=== PATIENT | male | born 1940 | race Caucasian/White ===

== ENCOUNTER → 2016-11-05 | Outpatient (CLI) | payer MEDICARE ==
[2016-11-05 08:15] LABS: Blood Urea Nitrogen 21 mg/dL (9-20); Non-African American GFR(MDRD) >60 (>60 ml/min/1.73 sqM)
--- NOTE | 2016-11-05 10:02 | CT ---
EXAMINATION TYPE: CT chest w con DATE OF EXAM: 11/05/2016 COMPARISON: CT chest October 22, 2015 HISTORY: Thoracic aortic aneurysm without rupture CT DLP: 671 mGycm. Automated Exposure Control for Dose Reduction was Utilized. TECHNIQUE: CT scan of the thorax is performed following with IV Contrast, patient injected with 100 ml mL of Omnipaque 300. FINDINGS: LUNGS: There is biapical scarring extending posteriorly on the right redemonstrated. There is depende nt atelectasis in both lower lobes. No concerning parenchymal nodule or mass is present bilaterally. No pleural effusion or pneumothorax is seen. Tracheobronchial tree is patent. MEDIASTINUM: There are no greater than 1 cm hilar or mediastinal lymph nodes. Heart size is stable an d upper limits of normal. There is mild biatrial dilatation. There is tiny pericardial effusion sligh tly more prominent. Coronary artery calcification is redemonstrated which is noted marker for coronar y artery disease. Ascending aorta measures 4.2 cm in diameter on axial image 29 not significantly ritchie nged from prior study. There is mild mixed plaque in the descending aorta noted. OTHER: There is 1 cm diverticulum medial to second portion of duodenum on coronal image 32 redemonstr ated. There is prominent multilevel anterior and lateral spurring in the visualized spine. IMPRESSION: 1. Stable 4.2 cm aneurysm of the ascending aorta
== END | disposition home or self-care (01) ==
LOC: RADCTMAIN 07:35
PROVIDERS: ATTEND Internal Medicine Cardiovascular Disease
DX: I71.2 Thoracic aortic aneurysm, without rupture (principal); I10 Essential (primary) hypertension
CPT/HCPCS: 82565; 84520; 71260; 36415; Q9967

== ENCOUNTER → 2018-08-23 | Outpatient (CLI) | payer MEDICARE ==
--- NOTE | 2018-08-24 12:46 | USB ---
Reason for exam: clinical finding. Indicated problem(s): palpable abnormality in the left breast. Physical Findings: Nurse Summary: left breast more prominent tissue than right breast (nurse ts). US Breast LT Left complete breast ultrasound includes all four quadrants, the retroareolar region and axilla. Finding demonstrates a 1.1 x 0.7 x 0.7cm hypoechoic, vascular lesion at the posterior nipple. These results were verbally communicated with the patient and result sheet given to the patient on 08/23/18. ASSESSMENT: Incomplete: need additional imaging evaluation, BI-RAD 0 RECOMMENDATION: Special view mammogram of the left breast.
--- NOTE | 2018-08-24 12:50 | MM ---
Reason for exam: clinical finding. MG 3D Diag Mammo W/Cad LT CC and MLO view(s) were taken of the left breast. There is no discrete abnormality. These results were verbally communicated with the patient and result sheet given to the patient on 08/23/18. ASSESSMENT: Suspicious, BI-RAD 4 RECOMMENDATION: Ultrasound core biopsy of the left breast. Patient is unsure if he would like a biopsy done at this time or who he would like to see for surgical consult. Patient states that he will notify Dr. Marshall once decision is made. Nurse left message with Dr. Marshall's voice mail regarding patient's choice at this time. PRELIMINARY REPORT CALLED AND FAXED TO DR. MARSHALL ON 08/24/18.
== END | disposition home or self-care (01) ==
LOC: RADUSWWP 06:51
PROVIDERS: ATTEND Family Medicine
DX: N63.20 Unspecified lump in the left breast, unspecified quadrant (principal); R92.8 Other abnormal and inconclusive findings on diagnostic imaging of breast
CPT/HCPCS: 77065; 76641; G0279; 77061

== ENCOUNTER → 2018-09-17 | Day surgery (SDC) | payer MEDICARE ==
[2018-09-17 11:26] VITALS: RESP 12; TEMP 97.4
[2018-09-17 12:54] VITALS: BP 120/75; PULSE 65
--- NOTE | 2018-09-17 13:34 | USB ---
EXAMINATION TYPE: US biopsy breast VAD LT DATE OF EXAM: 09/17/2018 CLINICAL HISTORY: N63.20 lump in left breast. TECHNIQUE: Ultrasound guided core biopsy of breast. COMPARISON: NONE FINDINGS: The procedure of ultrasound guided core biopsy was explained to the patient. Benefits, alternatives, and risks were discussed. An informed consent was then obtained. The patient was placed in supine positioning for imaging and for the procedure. The overlying skin was prepped and draped in usual sterile fashion. Lidocaine buffered with bicarbonate was used as anesthetic into the skin and subcutaneous tissue up to area of concern in the left breast. A leonel was made with surgical scalpel. Under ultrasound guidance, a 12-gauge vacuum assisted biopsy gun device was used to obtain 3 core samples. Following this, a biopsy clip was left in lesion. The patient tolerated the procedure well without any immediate complication. The patient was kept in the radiology department for short stay after the procedure and then discharged home in stable condition. IMPRESSION: Successful, uncomplicated ultrasound guided core biopsy of area of concern in the left breast, full pathology results to follow. Pathology Results: Benign LEFT BREAST, ULTRASOUND GUIDED CORE BIOPSY: Gynecomastia. Recommendation Further clinical management of benign gynecomastia. MTDD
== END ==
LOC: RADUSWWP 11:06
PROVIDERS: ATTEND Family Medicine
DX: N63.20 Unspecified lump in the left breast, unspecified quadrant (principal); N62 Hypertrophy of breast
CPT/HCPCS: 88305; 19083; A4648; J2001

== ENCOUNTER → 2019-07-30 | Outpatient (CLI) | payer MEDICARE ==
--- NOTE | 2019-08-01 12:18 | PE ---
Nuclear medicine PET/CT HISTORY: Squamous cell of head, skin, initial Patient received 11.5 mCi F-18 FDG intravenously and delayed whole-body scanning was performed. No comparisons Head and neck: There is no hyper metabolic uptake identified. No evident cervical, supraclavicular ad enopathy. CHEST: There is no evident lung mass, no mediastinal, axillary, hilar adenopathy. Coronary artery mitchell cifications are present. Aorta shows an ascending aorta measurement of 5 cm. No hypermetabolic uptake . ABDOMEN: Duodenal diverticulum is noted. Diverticular change in the sigmoid colon. No hypermetabolic uptake. Aorta is dense. Osseous structures: There is artifact due to patient's hip prostheses. No suspicious lytic or blastic lesion. No hypermetabolic uptake. Muscular uptake is likely physiologic. Lower extremities show no hypermetabolic uptake. impression: No suspicious findings.
== END | disposition home or self-care (01) ==
LOC: RADPETMAIN 09:41
PROVIDERS: ATTEND Internal Medicine Hematology & Oncology
DX: C44.82 Squamous cell carcinoma of overlapping sites of skin (principal)
CPT/HCPCS: 78816; A9552

== ENCOUNTER 2020-02-03 11:03 | Observation (INO) | payer MEDICARE ==
[2020-02-03 11:16] LABS: Glucose,Whole Blood 390 mg/dL (75-99)
[2020-02-03] MEDS ORDERED: SODIUM CHLORIDE 0.9% 1,000 ML IV STA (11:28)
--- NOTE | 2020-02-03 11:30 | ED ---
General Adult HPI - General Chief complaint: Recheck/Abnormal Lab/Rx Stated complaint: Clayton Brunner High Blood Sugar Time Seen by Provider: 02/03/20 11:12 Source: patient, family, RN notes reviewed Mode of arrival: ambulatory Limitations: no limitations - History of Present Illness Initial comments: Patient is a pleasant 79-year-old male presenting to the emergency Department with complaints of high blood sugar. Patient was having and fusion done today and blood sugar was reported as high. Patient states no history of similar symptoms previously. Patient has been having increased urination for several weeks. Patient has had some increased thirst and fatigue over the past one week. Patient has had some occasional abdominal discomfort, none at this time. No vomiting. No history of diabetes. 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 - Related Data Home Medications Medication Instructions Recorded Confirmed Apixaban [Eliquis] 5 mg PO BID 09/03/18 02/03/20 Losartan Potassium 100 mg PO DAILY 02/03/20 02/03/20 Metoprolol Succinate (ER) [Toprol 50 mg PO DAILY 02/03/20 02/03/20 Xl] Allergies Allergy/AdvReac Type Severity Reaction Status Date / Time No Known Allergies Allergy Verified 02/03/20 11:57 Review of Systems ROS Statement: Those systems with pertinent positive or pertinent negative responses have been documented in the HPI. ROS Other: All systems not noted in ROS Statement are negative. Constitutional: Denies: fever Eyes: Denies: eye pain ENT: Denies: ear pain Respiratory: Denies: cough Cardiovascular: Denies: chest pain Endocrine: Reports: fatigue, polydipsia, polyuria Gastrointestinal: Denies: abdominal pain Genitourinary: Denies: dysuria Musculoskeletal: Denies: back pain Skin: Denies: rash Neurological: Denies: weakness Past Medical History Past Medical History: Atrial Fibrillation, Hypertension Additional Past Medical History / Comment(s): aortic anurysm stable History of Any Multi-Drug Resistant Organisms: None Reported Past Surgical History: Orthopedic Surgery Additional Past Surgical History / Comment(s): hip replacement 2014 2009 Past Anesthesia/Blood Transfusion Reactions: No Reported Reaction Past Psychological History: No Psychological Hx Reported Smoking Status: Former smoker Past Alcohol Use History: Occasional Past Drug Use History: None Reported General Exam Limitations: no limitations General appearance: alert, in no apparent distress Head exam: Present: other (Skin irregularities right parietal region) Eye exam: Present: normal appearance ENT exam: Present: normal oropharynx Neck exam: Present: normal inspection Respiratory exam: Present: normal lung sounds bilaterally Cardiovascular Exam: Present: regular rate, normal rhythm GI/Abdominal exam: Present: soft. Absent: tenderness Extremities exam: Present: normal inspection Neurological exam: Present: alert Psychiatric exam: Present: normal affect, normal mood Skin exam: Present: other (Right parietal scalp skin irregularity) Course Vital Signs 02/03/20 02/03/20 02/03/20 11:05 12:11 13:11 Temperature 97.7 F Pulse Rate 63 67 69 Respiratory 16 18 18 Rate Blood Pressure 144/86 125/84 O2 Sat by Pulse 98 97 97 Oximetry 02/03/20 13:44 Temperature 97.7 F Pulse Rate 69 Respiratory 18 Rate Blood Pressure 125/84 O2 Sat by Pulse 97 Oximetry EKG Findings - EKG Comments: EKG Findings:: A. fib with rate of 71. QRS 102. QT 422. QTC 450. Normal axis. Normal QRS. No acute ST change. Medical Decision Making - Medical Decision Making Patient reevaluated. Patient and family updated. Case was discussed in detail with Dr. Castle, who will admit covering for Dr. Hurtado. Case was also discussed with Dr. Daevy. - Lab Data Result diagrams: 02/03/20 11:40 02/03/20 11:40 Lab Results 02/03/20 02/03/20 02/03/20 Range/Units 11:11 11:40 11:40 WBC 8.7 (3.8-10.6) k/uL RBC 5.51 (4.30-5.90) m/uL Hgb 16.0 (13.0-17.5) gm/dL Hct 48.9 (39.0-53.0) % MCV 88.7 (80.0-100.0) fL MCH 28.9 (25.0-35.0) pg MCHC 32.6 (31.0-37.0) g/dL RDW 12.2 (11.5-15.5) % Plt Count 187 (150-450) k/uL Neutrophils % 70 % Lymphocytes % 21 % Monocytes % 5 % Eosinophils % 1 % Basophils % 1 % Neutrophils # 6.1 (1.3-7.7) k/uL Lymphocytes # 1.8 (1.0-4.8) k/uL Monocytes # 0.4 (0-1.0) k/uL Eosinophils # 0.1 (0-0.7) k/uL Basophils # 0.1 (0-0.2) k/uL Sodium 134 L (137-145) mmol/L Potassium 4.5 (3.5-5.1) mmol/L Chloride 101 (98-107) mmol/L Carbon Dioxide 23 (22-30) mmol/L Anion Gap 10 mmol/L BUN 23 H (9-20) mg/dL Creatinine 0.79 (0.66-1.25) mg/dL Est GFR (CKD-EPI)AfAm >90 (>60 ml/min/1.73 sqM) Est GFR (CKD-EPI)NonAf 85 (>60 ml/min/1.73 sqM) Glucose 403 H (74-99) mg/dL POC Glucose (mg/dL) 390 H (75-99) mg/dL POC Glu Pcat Instructor ID [place], Stephanie Calcium 9.2 (8.4-10.2) mg/dL Total Bilirubin 1.9 H (0.2-1.3) mg/dL AST 30 (17-59) U/L ALT 25 (4-49) U/L Alkaline Phosphatase 92 (38-126) U/L Total Protein 6.8 (6.3-8.2) g/dL Albumin 4.1 (3.5-5.0) g/dL Amylase 44 (30-110) U/L Lipase 106 (23-300) U/L Urine Color Urine Appearance (Clear) Urine pH (5.0-8.0) Ur Specific [place] (1.001-1.035) Urine Protein (Negative) Urine Glucose (UA) (Negative) Urine Ketones (Negative) Urine Blood (Negative) Urine Nitrite (Negative) Urine Bilirubin (Negative) Urine Urobilinogen (<2.0) mg/dL Ur Leukocyte Esterase (Negative) Acetone, Qual Negative (Negative) 02/03/20 Range/Units 11:49 WBC (3.8-10.6) k/uL RBC (4.30-5.90) m/uL Hgb (13.0-17.5) gm/dL Hct (39.0-53.0) % MCV (80.0-100.0) fL MCH (25.0-35.0) pg MCHC (31.0-37.0) g/dL RDW (11.5-15.5) % Plt Count (150-450) k/uL Neutrophils % % Lymphocytes % % Monocytes % % Eosinophils % % Basophils % % Neutrophils # (1.3-7.7) k/uL Lymphocytes # (1.0-4.8) k/uL Monocytes # (0-1.0) k/uL Eosinophils # (0-0.7) k/uL Basophils # (0-0.2) k/uL Sodium (137-145) mmol/L Potassium (3.5-5.1) mmol/L Chloride (98-107) mmol/L Carbon Dioxide (22-30) mmol/L Anion Gap mmol/L BUN (9-20) mg/dL Creatinine (0.66-1.25) mg/dL Est GFR (CKD-EPI)AfAm (>60 ml/min/1.73 sqM) Est GFR (CKD-EPI)NonAf (>60 ml/min/1.73 sqM) Glucose (74-99) mg/dL POC Glucose (mg/dL) (75-99) mg/dL POC Glu Pcat Instructor ID Calcium (8.4-10.2) mg/dL Total Bilirubin (0.2-1.3) mg/dL AST (17-59) U/L ALT (4-49) U/L Alkaline Phosphatase (38-126) U/L Total Protein (6.3-8.2) g/dL Albumin (3.5-5.0) g/dL Amylase (30-110) U/L Lipase (23-300) U/L Urine Color Yellow Urine Appearance Clear (Clear) Urine pH 5.5 (5.0-8.0) Ur Specific [place] 1.041 H (1.001-1.035) Urine Protein Negative (Negative) Urine Glucose (UA) 4+ H (Negative) Urine Ketones 2+ H (Negative) Urine Blood Negative (Negative) Urine Nitrite Negative (Negative) Urine Bilirubin Negative (Negative) Urine Urobilinogen <2.0 (<2.0) mg/dL Ur Leukocyte Esterase Negative (Negative) Acetone, Qual (Negative) Disposition Clinical Impression: Diabetes mellitus, new onset Disposition: ADMITTED IP TO THIS HOSP Is patient prescribed a controlled substance at d/c from ED?: No Decision Time: 13:04
[2020-02-03 11:49] LABS: Basophils # (A) 0.1 k/uL (0-0.2); Basophils % (A) 1 %; Eosinophils # (A) 0.1 k/uL (0-0.7); Eosinophils % (A) 1 %; HCT 48.9 % (39.0-53.0); Lymphocytes # (A) 1.8 k/uL (1.0-4.8); Lymphocytes % (A) 21 %; MCH 28.9 pg (25.0-35.0); MCHC 32.6 g/dL (31.0-37.0); MCV 88.7 fL (80.0-100.0); Monocytes # (A) 0.4 k/uL (0-1.0); Monocytes % (A) 5 %; Neutrophils # (A) 6.1 k/uL (1.3-7.7); Neutrophils % (A) 70 %; Platelet Count 187 k/uL (150-450); RBC 5.51 m/uL (4.30-5.90); RDW 12.2 % (11.5-15.5); WBC 8.7 k/uL (3.8-10.6)
--- NOTE | 2020-02-03 11:56 | XR ---
EXAMINATION TYPE: XR KUB DATE OF EXAM: 02/03/2020 COMPARISON: None INDICATION: Abdominal pain elevated blood sugar TECHNIQUE: Upright view FINDINGS: There is a normal bowel gas pattern. No free air is evident. No suspicious differential air-fluid lev els are evident. Mild fecal retention is throughout the colon. Psoas margins are normal. No organomegaly is present. Bilateral hip prostheses are present. IMPRESSION: 1. Mild fecal retention
[2020-02-03 12:01] LABS: ALT 25 U/L (4-49); AST 30 U/L (17-59); African American GFR (CKD) >90 (>60 ml/min/1.73 sqM); Albumin 4.1 g/dL (3.5-5.0); Alkaline Phosphatase 92 U/L (38-126); Amylase 44 U/L (30-110); Anion Gap 10 mmol/L; Blood Urea Nitrogen 23 mg/dL (9-20); Calcium 9.2 mg/dL (8.4-10.2); Carbon Dioxide 23 mmol/L (22-30); Chloride 101 mmol/L (98-107); Glucose 403 mg/dL (74-99); Non-African American GFR(CKD) 85 (>60 ml/min/1.73 sqM); Potassium 4.5 mmol/L (3.5-5.1); Sodium 134 mmol/L (137-145); Total Bilirubin 1.9 mg/dL (0.2-1.3); Total Protein 6.8 g/dL (6.3-8.2)
[2020-02-03 12:01] LABS: Appearance,Urine Clear (Clear); Bilirubin,Urine Negative (Negative); Blood,Urine Negative (Negative); Color,Urine Yellow; Glucose,Urine (UA) 4+ (Negative); Leukocyte Esterase,Urine Negative (Negative); Nitrite,Urine Negative (Negative); PH, Urine 5.5 (5.0-8.0); Protein,Urine Negative (Negative); Specific Gravity,Urine 1.041 (1.001-1.035); Urobilinogen,Urine <2.0 mg/dL (<2.0)
[2020-02-03 12:56] LABS: Ketones,Urine 2+ (Negative)
[2020-02-03] MEDS ORDERED: NALOXONE 0.4 MG/ML 1 ML VIAL IV PRN (13:05)
[2020-02-03] MEDS ORDERED: SODIUM CHLORIDE 0.9% 1,000 ML IV SCH (13:15)
[2020-02-03 15:05] VITALS: BMI 28.9
[2020-02-03 16:36] LABS: Glucose,Whole Blood 354 mg/dL (75-99)
[2020-02-03] MEDS: INSULIN ASPART (NovoLOG) 100 UNIT/ML VIAL SQ SCH ×2 (17:18→21:34)
[2020-02-03] MEDS: metFORMIN 500 MG TAB PO SCH (17:20)
--- NOTE | 2020-02-03 18:46 | P.HPIM ---
History of Present Illness H&P Date: 02/03/20 Chief Complaint: High sugars History of presenting complaint: This is a very pleasant [address] muñoz from [place]. Chronic stable medical conditions include atrial fibrillation, hypertension, osteoarthritis that is stable. Patient was diagnosed with,squamous cell carcinoma of the scalp. In July of this year . Underwent surgical resection of the same by Dr. Temple.. Has been getting IV chemotherapy by Dr. Gutierrez. It was at his office for infusion today , described has been feeling bad for some time increase urine output decreased appetite and weight loss no fever no chills no nausea vomiting. Accu-Cheks found to be 400 and patient was directed down to the hospital. Patient's at the bedside. I saw the patient and the ER this afternoon. Review of systems: GEN.: Weak diet and weight loss decreased appetite EYES: None HEENT: None NECK: None RESPIRATORY: None CARDIOVASCULAR: None GASTROINTESTINAL: None GENITOURINARY: None MUSCULOSKELETAL: Joint pains LYMPHATICS: None HEMATOLOGICAL: None PSYCHIATRY: None NEUROLOGICAL: None Past medical history to include: Atrial fibrillation, hypertension, aortic aneurysm, squamous cell carcinoma of the scalp Social history: Alcohol occasionally, ex-smoker, lives with his Family history: Reviewed, noncontributory to presentation Physical examination: VITAL SIGNS: 97.7, 63, 16, 144/86, 98% on room air GENERAL: BMI 28.9, laying in bed, awake, tired. EYES: Pupils equal. Conjunctiva normal. HEENT: External appearance of nose and ears normal, oral cavity grossly normal. NECK: JVD not raised; masses not palpable. HEART: First and second heart sounds are normal; no edema. LUNGS: Respiratory rate normal; clear to auscultation. ABDOMEN: Soft, nontender, liver spleen not palpable, no masses palpable. PSYCH: Alert and oriented x3; mood and affect normal MUSCULAR skeletal: Evidence of OA. NEUROLOGICAL: Cranial nerves grossly intact; no facial asymmetry, power and sensation grossly intact. LYMPHATICS: No lymph nodes palpable in the axilla and neck INVESTIGATIONS, reviewed in the clinical context: White count 8.7 hemoglobin 16 platelets 187 potassium 4.5 crit and 0.79 Blood glucose 403 UA glucose 4+ positive, ketones 2+ positive, serum acetone negative EKG tracing personally reviewed by me-irregular baseline medically rate controlled Assessment: -Nonketotic hyperosmolar hyperglycemia -New onset of new diagnosis of diabetes mellitus type 2 -Scalp, cell carcinoma status post surgical excision followed by chemotherapy -Persistent atrial fibrillation, anticoagulated with eliquis -Primary osteoarthritis -Essential hypertension Plan: Patient be started on Glucophage. IV fluids. Sliding scale insulin. Home medications to be continued. Care was discussed at length with the patient and question also. clinical informatics educator was consulted. Patient put on a diabetic diet also. Past Medical History Past Medical History: Atrial Fibrillation, Hypertension Additional Past Medical History / Comment(s): aortic anurysm stable History of Any Multi-Drug Resistant Organisms: None Reported Past Surgical History: Orthopedic Surgery Additional Past Surgical History / Comment(s): hip replacement 2014 2009 Past Anesthesia/Blood Transfusion Reactions: No Reported Reaction Past Psychological History: No Psychological Hx Reported Smoking Status: Former smoker Past Alcohol Use History: Occasional Past Drug Use History: None Reported Medications and Allergies Home Medications Medication Instructions Recorded Confirmed Type Apixaban [Eliquis] 5 mg PO BID 09/03/18 02/03/20 History Losartan Potassium 100 mg PO DAILY 02/03/20 02/03/20 History Metoprolol Succinate (ER) [Toprol 50 mg PO DAILY 02/03/20 02/03/20 History Xl] Allergies Allergy/AdvReac Type Severity Reaction Status Date / Time No Known Allergies Allergy Verified 02/03/20 11:57 Physical Exam Vitals: Vital Signs Temp Pulse Pulse Resp BP BP Pulse Ox 02/03/20 15:00 18 02/03/20 14:08 98.1 F 76 18 162/73 97 02/03/20 13:44 97.7 F 69 18 125/84 97 02/03/20 13:28 98.1 F 76 18 162/73 97 02/03/20 13:11 69 18 125/84 97 02/03/20 12:11 67 18 97 02/03/20 11:05 97.7 F 63 16 144/86 98 Intake and Output 02/03/20 02/03/20 02/03/20 06:59 14:59 22:59 Other: Weight 88.904 kg Results CBC & Chem 7: 02/03/20 11:40 02/03/20 11:40 Labs: Abnormal Lab Results - Last 24 Hours (Table) 02/03/20 02/03/20 02/03/20 Range/Units 11:11 11:40 11:49 Sodium 134 L (137-145) mmol/L BUN 23 H (9-20) mg/dL Glucose 403 H (74-99) mg/dL POC Glucose (mg/dL) 390 H (75-99) mg/dL Total Bilirubin 1.9 H (0.2-1.3) mg/dL Ur Specific [place] 1.041 H (1.001-1.035) Urine Glucose (UA) 4+ H (Negative) Urine Ketones 2+ H (Negative) 02/03/20 Range/Units 16:35 Sodium (137-145) mmol/L BUN (9-20) mg/dL Glucose (74-99) mg/dL POC Glucose (mg/dL) 354 H (75-99) mg/dL Total Bilirubin (0.2-1.3) mg/dL Ur Specific [place] (1.001-1.035) Urine Glucose (UA) (Negative) Urine Ketones (Negative) Thrombosis Risk Factor Assmnt - Choose All That Apply Any of the Below Risk Factors Present?: No Each Risk Factor Represents 3 Points: Age 75 years or older Thrombosis Risk Factor Assessment Total Risk Factor Score: 3 Thrombosis Risk Factor Assessment Level: Moderate Risk
[2020-02-03 20:49] LABS: Glucose,Whole Blood 307 mg/dL (75-99)
[2020-02-03] MEDS: APIXABAN 5 MG TAB PO SCH (20:57)
[2020-02-03] MEDS: SODIUM CHLORIDE 0.9% 1,000 ML IV SCH (20:58)
[2020-02-04] MEDS: SODIUM CHLORIDE 0.9% 1,000 ML IV SCH ×2 (04:04→12:47)
[2020-02-04 06:23] LABS: Glucose,Whole Blood 236 mg/dL (75-99)
[2020-02-04 07:27] LABS: African American GFR (CKD) >90 (>60 ml/min/1.73 sqM); Anion Gap 10 mmol/L; Blood Urea Nitrogen 16 mg/dL (9-20); Calcium 8.5 mg/dL (8.4-10.2); Carbon Dioxide 23 mmol/L (22-30); Chloride 106 mmol/L (98-107); Glucose 293 mg/dL (74-99); Non-African American GFR(CKD) 88 (>60 ml/min/1.73 sqM); Potassium 4.3 mmol/L (3.5-5.1); Sodium 139 mmol/L (137-145)
[2020-02-04] MEDS: INSULIN ASPART (NovoLOG) 100 UNIT/ML VIAL SQ SCH ×3 (08:09→17:14)
[2020-02-04] MEDS: metFORMIN 500 MG TAB PO SCH ×2 (08:10→17:16)
[2020-02-04] MEDS: APIXABAN 5 MG TAB PO SCH (08:33)
[2020-02-04] MEDS ORDERED: LOSARTAN 50 MG TAB PO SCH (09:00)
[2020-02-04] MEDS ORDERED: METOPROLOL SUCCINATE (ER) 50 MG TAB.ER.24H PO SCH (09:00)
[2020-02-04 11:58] LABS: Glucose,Whole Blood 400 mg/dL (75-99)
[2020-02-04] MEDS ORDERED: INSULIN DETEMIR (LEVEMIR) 100 UNIT/ML SYR SQ SCH (12:19)
[2020-02-04 16:02] VITALS: BP 133/76; PULSE 74; RESP 17; TEMP 97.8
[2020-02-04 16:51] LABS: Glucose,Whole Blood 373 mg/dL (75-99)
--- NOTE | 2020-02-04 22:12 | P.DS ---
Providers Date of admission: 02/03/20 13:10 Expected date of discharge: 02/04/20 Attending physician: Javier Castle Primary care physician: Baron Marshall [facility] Course: Chief Complaint: High sugars History of presenting complaint: This is a very pleasant [address] marshall from [place]. Chronic stable medical conditions include atrial fibrillation, hypertension, osteoarthritis that is stable. Patient was diagnosed with,squamous cell carcinoma of the scalp. In July of this year . Underwent surgical resection of the same by Dr. Temple.. Has been getting IV immunotherapy by Dr. Gutierrez. It was at his office for infusion today , described has been feeling bad for some time increase urine output decreased appetite and weight loss no fever no chills no nausea vomiting. Accu-Cheks found to be 400 and patient was directed down to the hospital. Patient's at the bedside. I saw the patient and the ER this afternoon. Patient admitted with new onset of diabetes secondary to possibly immunotherapy. Initially was put on metformin. Kirsty Mancia NP from oncology team some of the newer chemotherapy agents maybe causing hyperglycemia. Today-discussed with the patient. Patient be sent home on Levemir. Told increased dose to 26 units. Accu-Cheks will be followed. As an outpatient. Questions answered. Dietitian consulted Discussion and discharge planning more than 35 minutes Physical examination: VITAL SIGNS: 97.8, 74, 17, 130s tube 76, 98% room air GENERAL: Laying in bed, comfortable EYES: Pupils equal. Conjunctiva normal. HEENT: External appearance of nose and ears normal, oral cavity grossly normal. NECK: JVD not raised; masses not palpable. HEART: First and second heart sounds are normal; no edema. LUNGS: Respiratory rate normal; clear to auscultation. ABDOMEN: Soft, nontender, liver spleen not palpable, no masses palpable. PSYCH: Alert and oriented x3; mood and affect normal MUSCULAR skeletal: Evidence of OA. INVESTIGATIONS, reviewed in the clinical context: Potassium 4.3 Accu-Cheks 373 Previous testing White count 8.7 hemoglobin 16 platelets 187 potassium 4.5 crit and 0.79 Blood glucose 403 UA glucose 4+ positive, ketones 2+ positive, serum acetone negative EKG tracing personally reviewed by me-irregular baseline medically rate controlled Assessment: -Nonketotic hyperosmolar hyperglycemia -New onset of new diagnosis of diabetes mellitus type 2, possibly secondary to immunotherapy -Scalp, cell carcinoma status post surgical excision followed by immunotherapy -Persistent atrial fibrillation, anticoagulated with eliquis -Primary osteoarthritis -Essential hypertension Disposition: Home Patient Condition at Discharge: Stable Plan - Discharge Summary Discharge Rx Participant: Yes New Discharge Prescriptions: New Insulin Detemir (Levemir) [Levemir] 20 unit SQ DAILY@0700 #1 syr Continue Apixaban [Eliquis] 5 mg PO BID Metoprolol Succinate (ER) [Toprol XL] 50 mg PO DAILY Losartan Potassium 100 mg PO DAILY Discharge Medication List Apixaban [Eliquis] 5 mg PO BID 09/03/18 [History] Losartan Potassium 100 mg PO DAILY 02/03/20 [History] Metoprolol Succinate (ER) [Toprol XL] 50 mg PO DAILY 02/03/20 [History] Insulin Detemir (Levemir) [Levemir] 20 unit SQ DAILY@0700 #1 syr 02/04/20 [Rx] Follow up Appointment(s)/Referral(s): Gerard Patton MD [REFERRING] - 1 Week [facility] [NON-STAFF] - 1 Week Baron Marshall MD [Primary Care Provider] - 1-2 days Patient Instructions/Handouts: Type 2 Diabetes in Adults: New Diagnosis (GEN), Basic Carbohydrate Counting (GEN), Meal Planning with the Plate Method (DC), Meal Planning with Diabetes Exchanges (DC), Managing Diabetes During Sick Days (GEN) Activity/Diet/Wound Care/Special Instructions: shant bran hs- keep log diabetic diet Discharge Disposition: HOME SELF-CARE
== END 2020-02-04 18:10 | disposition home or self-care (01) ==
LOC: EC 11:03 → 1SOBS 13:10
PROVIDERS: ADMIT Hospitalist; ATTEND Hospitalist
DX: E11.65 Type 2 diabetes mellitus with hyperglycemia (principal); Z85.828 Personal history of other malignant neoplasm of skin; I48.19 Other persistent atrial fibrillation; I71.4 Abdominal aortic aneurysm, without rupture; I10 Essential (primary) hypertension; M19.90 Unspecified osteoarthritis, unspecified site; Z96.649 Presence of unspecified artificial hip joint; Z87.891 Personal history of nicotine dependence; Z79.01 Long term (current) use of anticoagulants; Z79.899 Other long term (current) drug therapy
CPT/HCPCS: 96360; 96361; 99285; 36415; 93005; 80053; 80048; 82150; 82009; 83690; 83735; 85025; 81003; 74018; G0378 ×2

== ENCOUNTER 2020-06-21 06:38 | Day surgery (SDC) | payer MEDICARE ==
[2020-06-11 10:13] VITALS: BMI 28.0
[~2020-06-21 06:38] MED LIST: LACTATED RINGERS 1,000 ML IV SCH; LIDOCAINE 1% (10MG/ML) FOR IV START INTRADERMA PRN
[2020-06-21 07:26] LABS: Glucose,Whole Blood 120 mg/dL (75-99)
[2020-06-21 07:32] VITALS: TEMP 97.6
[2020-06-21] MEDS ORDERED: PROPOFOL 10 MG/ML 20 ML VIAL IV ONE (07:40)
--- NOTE | 2020-06-21 08:14 | P.PCN ---
Date of Procedure: 06/21/20 Description of Procedure: BRIEF HISTORY: Patient is a 80-year-old male presented for outpatient colonoscopy for hemorrhage of the anus and rectum. No prior colonoscopy. No abdominal pain. No change in bowel habits. Patient reports intermittent blood per rectum. PROCEDURE PERFORMED: Colonoscopy with biopsy. PREOPERATIVE DIAGNOSIS: Hemorrhage of the anus and rectum, colonoscopy. ESTIMATED BLOOD LOSS: Minimal. IV sedation per Anesthesia. PROCEDURE: After informed consent was obtained, the patient, was brought into the endoscopy unit. IV sedation was administered by Anesthesia under continuous monitoring. Digital rectal examination was normal. Initially the Olympus CF-190 flexible video colonoscope was then inserted in the rectum, gradually advanced into the cecum without any difficulty. Careful examination was performed as the scope was gradually being withdrawn. Ileocecal valve and the appendiceal orifice were visualized and appeared normal. Prep was excellent. Mucosa of the cecum, ascending colon, transverse colon, descending colon, sigmoid colon, and rectum appeared normal, except for some mild diffuse erythema in the distal 10 cm of colon consistent with mild proctitis. A few scattered diverticula noted in the sigmoid colon. Retroflexion was performed in the rectum and no lesions were seen. The patient tolerated the procedure well. IMPRESSION: Mild proctitis. Mild sigmoid diverticulosis. RECOMMENDATIONS: Findings of this examination were discussed with the patient.. Okay to resume diet. Okay to resume medication. Okay to resume Eliquis tomorrow. Await pathology from biopsies. Patient should follow-up in the GI clinic the next 1-2 weeks for results of biopsies
[2020-06-21 08:55] VITALS: BP 119/78; PULSE 60; RESP 20
== END 2020-06-21 08:57 | disposition home or self-care (01) ==
LOC: ORWHC2ENDO 06:38
PROVIDERS: ATTEND Internal Medicine
DX: K62.89 Other specified diseases of anus and rectum (principal); K57.30 Diverticulosis of large intestine without perforation or abscess without bleeding; I48.91 Unspecified atrial fibrillation; I10 Essential (primary) hypertension; E11.9 Type 2 diabetes mellitus without complications; N40.0 Benign prostatic hyperplasia without lower urinary tract symptoms; Z91.040 Latex allergy status; Z79.899 Other long term (current) drug therapy; Z79.01 Long term (current) use of anticoagulants; Z96.643 Presence of artificial hip joint, bilateral; Z87.891 Personal history of nicotine dependence; Z91.09 Other allergy status, other than to drugs and biological substances
CPT/HCPCS: 88305; 45380; J2704

== ENCOUNTER 2022-12-10 07:44 | Emergency (ER) | payer MEDICARE ==
[2022-12-10 07:52] LABS: Glucose,Whole Blood 102 mg/dL (70-110)
[2022-12-10 07:53] VITALS: RESP 18; TEMP 97.6
[2022-12-10] MEDS ORDERED: DEXTROSE 50% SYRINGE 50 ML IVP STA (08:03)
--- NOTE | 2022-12-10 08:15 | ED ---
General Adult HPI - General Chief complaint: Overdose Stated complaint: insulin issues Time Seen by Provider: 12/10/22 07:45 Source: patient, EMS, RN notes reviewed, old records reviewed Mode of arrival: EMS Limitations: no limitations - History of Present Illness Initial comments: Patient is an 83-year-old male who presents emergency Department after a ccidentally overdosing on his lispro insulin. Patient is a type I diabetic as well as having history of atrial fibrillation. Takes both long-acting and short-acting insulin. Is on insulin glargine 30 units daily as well as insulin lispro is postprandial insulin 6 units. Accidentally took 30 units of his lispro insulin. Did not take his glargine insulin this morning. Patient accidentally took this insulin at approximately 7 AM. Has no acute complaints. Is concerned regarding his blood sugar. Denies chest pain, shortness of breath, abdominal pain, nausea, vomiting, diarrhea. Blood sugar with EMS was 120. Blood sugar here is 102. His no other acute complaints at this time. Presents for further evaluation at this time. He states this was accidental as he grabbed the incorrect pen to administer the insulin this morning. - Related Data Home Medications Medication Instructions Recorded Confirmed Apixaban [Eliquis] 5 mg PO BID 09/03/18 12/10/22 Losartan Potassium 100 mg PO DAILY 02/03/20 12/10/22 Metoprolol Succinate (ER) [Toprol 50 mg PO DAILY 02/03/20 12/10/22 XL] Furosemide [Lasix] 20 mg PO DAILY 12/10/22 12/10/22 Insulin Glargine,Hum.rec.anlog 30 unit SQ DAILY 12/10/22 12/10/22 [Alisia Rothman] Insulin Lispro-Aabc [Lyumjev See Protocol SQ DIRECTED MDD 50 12/10/22 12/10/22 Kwikpen U-100] units Allergies Allergy/AdvReac Type Severity Reaction Status Date / Time adhesive tape Allergy blistered Verified 12/10/22 11:15 up skin, took skin off Latex, Natural Rubber Allergy SKIN Verified 12/10/22 11:15 BLISTERS Review of Systems ROS Statement: Those systems with pertinent positive or pertinent negative responses have been documented in the HPI. Review of Systems: CONST: Denies fever EYES: Denies blurry vision ENT: Denies nasal congestion C/V: Denies Chest pain RESP: Denies shortness of breath GI: Denies abdominal pain : Denies dysuria SKIN: Denies rash. MSK: Denies joint pain. NEURO: Denies headache ROS Other: All systems not noted in ROS Statement are negative. Past Medical History Past Medical History: Atrial Fibrillation, Cancer, Diabetes Mellitus, GI Bleed, Hypertension, Prostate Disorder, Skin Disorder Additional Past Medical History / Comment(s): Thoracic aortic aneurysm stable. Skin cancer, basal cell, & squamous cell - had Rx infusions, last 02/04/20, & radiation (last 12/2019). Rectal bleeding. BPH. History of Any Multi-Drug Resistant Organisms: None Reported Past Surgical History: Joint Replacement Additional Past Surgical History / Comment(s): Bilat hip replacement 2014, 2009. Past Anesthesia/Blood Transfusion Reactions: No Reported Reaction Additional Past Anesthesia/Blood Transfusion Reaction / Comment(s): Voodoo, refuses blood products. Past Psychological History: No Psychological Hx Reported Smoking Status: Former smoker Past Alcohol Use History: Occasional Past Drug Use History: None Reported - Past Family History Mother Family Medical History: No Reported History General Exam - General Exam Comments Initial Comments: General: Appears in no acute distress. HEAD: Normal with no signs of head trauma. EYES: PERRLA, EOMI, conjunctiva normal, no discharge. ENT: Hearing grossly intact, normal oropharynx. RESPIRATORY: Clear breath sounds bilaterally. No wheezes, rales, or rhonchi. C/V: Regular rate and rhythm. S1 and S2 auscultated, no edema, peripheral pulses 2+ and intact throughout ABD: Abd is soft, nontender, nondistended EXT: Normal range of motion, no obvious deformity SKIN: No rashes or lesions observed on exposed skin. NEURO: Alert and oriented x 4. Cranial nerves II-XII intact. No focal sensory or strength deficits. Limitations: no limitations Course Vital Signs 12/10/22 12/10/22 12/10/22 07:46 07:53 13:15 Temperature 97.6 F Pulse Rate 55 L 48 L Pulse Rate [ 53 L Clinical Account Manager ] Respiratory 18 18 Rate Blood Pressure 168/99 124/78 O2 Sat by Pulse 95 99 Oximetry Medical Decision Making - Medical Decision Making Was pt. sent in by a medical professional or institution (, PA, TOOL SPECIALIST, urgent care, hospital, or usp...) When possible be specific @ -No Did you speak to anyone other than the patient for history (EMS, parent, family, police, friend...)? What history was obtained from this source @ -No Did you review nursing and triage notes (agree or disagree)? Why? @ -I reviewed and agree with nursing and triage notes Were old charts reviewed (outside hosp., previous admission, EMS record, old EKG, old radiological studies, urgent care reports/EKG's, usp records)? Report findings @ -No old charts were reviewed Differential Diagnosis (chest pain, altered mental status, abdominal pain women, abdominal pain men, vaginal bleeding, weakness, fever, dyspnea, syncope, headache, dizziness, GI bleed, back pain, seizure, CVA, palpatations, mental health, musculoskeletal)? @ -Accidental insulin overdose, hypoglycemia, hyperglycemia. This list is not all-inclusive. EKG interpreted by me (3pts min.). @ -As above X-rays interpreted by me (1pt min.). @ -None done CT interpreted by me (1pt min.). @ -None done U/S interpreted by me (1pt. min.). @ -None done What testing was considered but not performed or refused? (CT, X-rays, U/S, labs)? Why? @ -None What meds were considered but not given or refused? Why? @ -None Did you discuss the management of the patient with other professionals (professionals i.e. , PA, TOOL SPECIALIST, lab, RT, psych nurse, social services specialist, bdr, teacher, delinquency prevention officer, field nurse case manager)? Give summary @ -No Was smoking cessation discussed for >3mins.? @ -No Was critical care preformed (if so, how long)? @ -No Were there social determinants of health that impacted care today? How? (Homelessness, low income, unemployed, alcoholism, drug addiction, transportation, low edu. Level, literacy, decrease access to med. care, assisted, rehab)? @ -No Was there de-escalation of care discussed even if they declined (Discuss DNR or withdrawal of care, Hospice)? DNR status @ -No What co-morbidities impacted this encounter? (DM, HTN, Smoking, COPD, CAD, Cancer, CVA, ARF, Chemo, Hep., AIDS, mental health diagnosis, sleep apnea, morbid obesity)? @ -Insulin-dependent diabetes Was patient admitted / discharged? Hospital course, mention meds given and route, prescriptions, significant lab abnormalities, going to OR and other pertinent info. @ -Based on the patient's presentation and physical exam, he presents following an accidental overdose of his short-acting insulin at home. He took 30 units of insulin lispro instead of 6 units but also did not take his normal long-acting glargine. I discussed with him that I would like to observe him in the [facility] for multiple hours. There is been one hour since he administered this medication accidentally. Vital signs are within acceptable limits. Blood sugar is slowly dropping as it was 120 with EMS and is now 100. We'll empirically administer an amp of D50 as well as feed the patient. We will obtain every 30 minute Accu-Cheks. Patient was in agreement this plan. Exam is unremarkable. Discussed with him that lispro typically last approximately 4 hours. Patient's laboratory studies are within acceptable limits. EKG is unremarkable. Following an observation period of 3-1/2 hours, for a total of 4-1/2 hours since taking the insulin, patient's blood glucose level remained stable. He'll be discharged home at this time. He was in agreement this plan. Recommended he not take his long-acting insulin today and restart it tomorrow. He was in agreement with this plan. I instructed the patient to follow up with their PCP in the next 1-3 days. I explained that the patient should return to the emergency department if they experience any worsening symptoms. Strict return precautions were discussed with the patient. The patient expressed understanding of these instructions. I answered all questions that the patient had. The patient was discharged home in good condition with their prescriptions and follow up information. Undiagnosed new problem with uncertain prognosis? @ -No Drug Therapy requiring intensive monitoring for toxicity (Heparin, Nitro, Insulin, Cardizem)? @ -No Were any procedures done? @ -No Diagnosis/symptom? @ -Accidental short-acting insulin overdose Acute, or Chronic, or Acute on Chronic? @ -Acute Uncomplicated (without systemic symptoms) or Complicated (systemic symptoms)? @ -Complicated Side effects of treatment? @ -No Exacerbation, Progression, or Severe Exacerbation? @ -No Poses a threat to life or bodily function? How? (Chest pain, [place], [place], pneumonia, PE, COPD, DKA, ARF, appy, cholecystitis, CVA, Diverticulitis, Homicidal, Suicidal, threat to staff... and all critical care pts) @ -It can be, yes if not monitored and patient becomes hypoglycemic. - Lab Data Result diagrams: 12/10/22 08:10 12/10/22 08:10 Lab Results 12/10/22 12/10/22 12/10/22 Range/Units 07:51 08:10 08:10 WBC 6.9 (3.8-10.6) k/uL RBC 4.91 (4.30-5.90) m/uL Hgb 14.9 (13.0-17.5) gm/dL Hct 45.2 (39.0-53.0) % MCV 92.1 (80.0-100.0) fL MCH 30.4 (25.0-35.0) pg MCHC 33.0 (31.0-37.0) g/dL RDW 12.6 (11.5-15.5) % Plt Count 156 (150-450) k/uL MPV 8.6 Neutrophils % 60 % Lymphocytes % 27 % Monocytes % 8 % Eosinophils % 3 % Basophils % 0 % Neutrophils # 4.2 (1.3-7.7) k/uL Lymphocytes # 1.9 (1.0-4.8) k/uL Monocytes # 0.5 (0-1.0) k/uL Eosinophils # 0.2 (0-0.7) k/uL Basophils # 0.0 (0-0.2) k/uL Sodium 141 (137-145) mmol/L Potassium 4.3 (3.5-5.1) mmol/L Chloride 110 H (98-107) mmol/L Carbon Dioxide 24 (22-30) mmol/L Anion Gap 7 mmol/L BUN 21 H (9-20) mg/dL Creatinine 0.78 (0.66-1.25) mg/dL Est GFR (CKD-EPI)AfAm >90 (>60 ml/min/1.73 sqM) Est GFR (CKD-EPI)NonAf 84 (>60 ml/min/1.73 sqM) Glucose 92 (74-99) mg/dL POC Glucose (mg/dL) 102 (70-110) mg/dL POC Glu Edge Gluer ID Yoselin Zimmerman Calcium 8.5 (8.4-10.2) mg/dL 12/10/22 12/10/22 Range/Units 08:46 11:19 WBC (3.8-10.6) k/uL RBC (4.30-5.90) m/uL Hgb (13.0-17.5) gm/dL Hct (39.0-53.0) % MCV (80.0-100.0) fL MCH (25.0-35.0) pg MCHC (31.0-37.0) g/dL RDW (11.5-15.5) % Plt Count (150-450) k/uL MPV Neutrophils % % Lymphocytes % % Monocytes % % Eosinophils % % Basophils % % Neutrophils # (1.3-7.7) k/uL Lymphocytes # (1.0-4.8) k/uL Monocytes # (0-1.0) k/uL Eosinophils # (0-0.7) k/uL Basophils # (0-0.2) k/uL Sodium (137-145) mmol/L Potassium (3.5-5.1) mmol/L Chloride (98-107) mmol/L Carbon Dioxide (22-30) mmol/L Anion Gap mmol/L BUN (9-20) mg/dL Creatinine (0.66-1.25) mg/dL Est GFR (CKD-EPI)AfAm (>60 ml/min/1.73 sqM) Est GFR (CKD-EPI)NonAf (>60 ml/min/1.73 sqM) Glucose (74-99) mg/dL POC Glucose (mg/dL) 215 H 191 H (70-110) mg/dL POC Glu Edge Gluer ID Danielle Nguyen Melissa Calcium (8.4-10.2) mg/dL - EKG Data -: EKG Interpreted by Me EKG Comments: 12-lead Electrocardiogram Interpretation Note EKG was reviewed and interpreted by myself. 12-lead ECG performed at 0 800 is interpreted by me as revealing atrial fibrillation at a rate of 52 beats per mi nute. [place] is normal. QRS duration is 152 ms, QTc is 445 ms.. Right bundle- branch block morphology. There were no ST or T wave abnormalities to suggest myocardial ischemia or injury. R wave progression across the precordium was satisfactory. By my interpretation this EKG is non-diagnostic for acute ischemia. Disposition Clinical Impression: Accidental overdose of insulin Disposition: HOME SELF-CARE Condition: Good Instructions (If sedation given, give patient instructions): Hypoglycemia in a Person with Diabetes (ED) Is patient prescribed a controlled substance at d/c from ED?: No Referrals: Romel Taveras MD [Primary Care Provider] - 1-2 days Time of Disposition: 11:48
[2022-12-10 08:18] LABS: Basophils % (A) 0 %; Eosinophils # (A) 0.2 k/uL (0-0.7); Eosinophils % (A) 3 %; HCT 45.2 % (39.0-53.0); HGB 14.9 gm/dL (13.0-17.5); Lymphocytes # (A) 1.9 k/uL (1.0-4.8); Lymphocytes % (A) 27 %; MCH 30.4 pg (25.0-35.0); MCV 92.1 fL (80.0-100.0); Mean Platelet Volume 8.6; Monocytes # (A) 0.5 k/uL (0-1.0); Monocytes % (A) 8 %; Neutrophils # (A) 4.2 k/uL (1.3-7.7); Neutrophils % (A) 60 %; Platelet Count 156 k/uL (150-450); RBC 4.91 m/uL (4.30-5.90); RDW 12.6 % (11.5-15.5); WBC 6.9 k/uL (3.8-10.6)
[2022-12-10 08:48] LABS: Glucose,Whole Blood 215 mg/dL (70-110)
[2022-12-10 09:01] LABS: African American GFR (CKD) >90 (>60 ml/min/1.73 sqM); Anion Gap 7 mmol/L; Blood Urea Nitrogen 21 mg/dL (9-20); Calcium 8.5 mg/dL (8.4-10.2); Carbon Dioxide 24 mmol/L (22-30); Chloride 110 mmol/L (98-107); Glucose 92 mg/dL (74-99); Non-African American GFR(CKD) 84 (>60 ml/min/1.73 sqM); Sodium 141 mmol/L (137-145)
[2022-12-10 09:10] LABS: Potassium 4.3 mmol/L (3.5-5.1)
[2022-12-10 11:21] LABS: Glucose,Whole Blood 191 mg/dL (70-110)
[2022-12-10 13:16] VITALS: BP 124/78; PULSE 48
== END 2022-12-10 13:16 | disposition home or self-care (01) ==
LOC: EC 07:44
DX: T38.3X1A Poisoning by insulin and oral hypoglycemic [antidiabetic] drugs, accidental (unintentional), initial encounter (principal); I10 Essential (primary) hypertension; I48.91 Unspecified atrial fibrillation; E11.9 Type 2 diabetes mellitus without complications; Z79.01 Long term (current) use of anticoagulants; Z79.4 Long term (current) use of insulin; Z79.899 Other long term (current) drug therapy; Z87.891 Personal history of nicotine dependence; Z91.040 Latex allergy status; Z88.8 Allergy status to other drugs, medicaments and biological substances
CPT/HCPCS: 36415; 80048; 85025; 93005; 96374; 99284

== ENCOUNTER 2024-02-24 06:20 | Day surgery (SDC) | payer MEDICARE ==
[~2024-02-24 06:20] MED LIST changes: -LACTATED RINGERS 1,000 ML IV SCH; +TETRACAINE 0.5% OPHTH (PF) DROPS 4 ML BTL OP PRN
[2024-02-24] MEDS: IV FLUID CONTINUATION 1,000 ML IV ONE (06:39)
[2024-02-24] MEDS: LACTATED RINGERS 1,000 ML IV SCH (07:01)
[2024-02-24] MEDS: CYCLOPENTOLATE 1% OPHTH SOLN 2 ML BTL OP PRN (07:02)
[2024-02-24 07:05] LABS: Glucose,Whole Blood 165 mg/dL (70-110)
[2024-02-24] MEDS: PHENYLEPHRINE 2.5% OPHTH DRP 2ML OP PRN (07:05)
[2024-02-24 07:11] VITALS: TEMP 97
[2024-02-24] MEDS ORDERED: fentaNYL (PF) 50 MCG/ML 2 ML AMP ONE (07:34)
[2024-02-24] MEDS ORDERED: MIDAZOLAM 2 MG/2 ML VIAL ONE (07:34)
[2024-02-24] MEDS: EPINEPHrine (PF) 0.3 ML in BALANCED SALT IRRIG SOLN COMB2 500 ML IRRIGATION ONE (07:58)
[2024-02-24] MEDS: TIMOLOL 0.5% OPHTH DROPS 5 ML BTL OP PRN (08:05)
[2024-02-24] MEDS: MOXIFLOXACIN HCL 0.5% DROPS 3 ML BTL OP PRN (08:05)
[2024-02-24] MEDS: DUOVISC KIT (GREEN BOX) INTRAOCULA ONE (08:07)
[2024-02-24] MEDS: BALANCED SALT IRRIG SOLN COMB2 15 ML IRRIG.SOLN INTRAOCULA ONE (08:07)
[2024-02-24] MEDS: LIDOCAINE 1% (PF) 10MG/ML VIAL MISCELLANE ONE (08:07)
[2024-02-24] MEDS: EPINEPHrine (PF) 1 MG/ML AMP MISCELLANE ONE (08:08)
--- NOTE | 2024-02-24 08:14 | P.OP ---
Date of Procedure: 02/24/24 Preoperative Diagnosis: NS & CS Postoperative Diagnosis: same Procedure(s) Performed: PIOL, OD Implants: MX60E 23.50 Anesthesia: MAC Surgeon: Mario Munoz Pathology: none sent Condition: stable Disposition: same day Indications for Procedure: blurry vision Operative Findings: no complications
[2024-02-24 08:45] VITALS: BP 127/68; PULSE 56; RESP 18
--- NOTE | 2024-02-24 12:50 | OP ---
OPERATIVE REPORT DATE OF SERVICE : 02/24/2024 PREOPERATIVE DIAGNOSIS: Nuclear sclerosis, posterior subcapsular cataract. POSTOPERATIVE DIAGNOSIS: Nuclear sclerosis, posterior subcapsular cataract. OPERATION: Phacoemulsification of cataract and interocular lens implant, right eye. ESTIMATED BLOOD LOSS: Zero. SPECIMEN TAKEN: None. NARRATIVE: After obtaining the appropriate consent, the patient was brought to the operating room where the patient was placed under cardiac monitoring and prepped and draped in the usual sterile manner. At the 11 o'clock position, a 15-degree super sharp blade was used to create a paracentesis followed by instillation of 1% Xylocaine MPF 50:50 mix with BSS into the anterior chamber. This was followed by Duovisc viscoelastic to stabilize the anterior chamber. At the 9 o'clock position a self-sealing corneal flap incision was created using 2.8 mm zakiya keratome. A cystotome was used to initiate a continuous tear capsulorrhexis which was completed with the Utrata forceps. A Binkhorst cannula was used to hydrodissect the lens nucleus followed by hydrodelineation. Phacoemulsification of the lens was performed utilizing phacochop in 24.19 seconds at 13.2% power. The remaining cortical material was removed using the irrigation aspiration mode followed by additional 1% Xylocaine MPF into the anterior chamber followed by viscoelastic to stabilize the capsular bag. A [employer] MX60E 23.5 diopters posterior chamber lens was placed into the capsular bag without difficulty. The remaining viscoelastic material was removed from the anterior chamber with the irrigation/aspiration. Balanced salt solution was used to normalize the intraocular pressure. The incision was checked for watertight integrity. The patient then received 2 drops of 0.5% timolol followed by 2 drops Vigamox, was lightly patched and shielded in the usual manner. There were no complications from the procedure. The patient tolerated the procedure well and was returned to recovery in good condition. MMODL / IJN: [id number] /
== END 2024-02-24 08:55 | disposition home or self-care (01) ==
LOC: OR 06:20
PROVIDERS: ATTEND Ophthalmology

== ENCOUNTER 2024-03-09 08:17 | Day surgery (SDC) | payer MEDICARE ==
[~2024-03-09 08:17] MED LIST changes: -LIDOCAINE 1% (10MG/ML) FOR IV START INTRADERMA PRN
[2024-03-09 08:46] VITALS: TEMP 97
[2024-03-09] MEDS: LACTATED RINGERS 1,000 ML IV SCH (08:51)
[2024-03-09] MEDS: IV FLUID CONTINUATION 1,000 ML IV ONE (08:51)
[2024-03-09] MEDS: CYCLOPENTOLATE 1% OPHTH SOLN 2 ML BTL OP PRN (08:55)
[2024-03-09] MEDS: PHENYLEPHRINE 2.5% OPHTH DRP 2ML OP PRN (08:58)
[2024-03-09 08:59] LABS: Glucose,Whole Blood 119 mg/dL (70-110)
[2024-03-09] MEDS ORDERED: fentaNYL (PF) 50 MCG/ML 2 ML AMP ONE (09:20)
[2024-03-09] MEDS: METOCLOPRAMIDE 5 MG/ML 2 ML VIAL IVP STA (09:28)
[2024-03-09] MEDS: FAMOTIDINE 20 MG/2 ML VIAL IV STA (09:28)
[2024-03-09] MEDS: BALANCED SALT IRRIG SOLN COMB2 15 ML IRRIG.SOLN INTRAOCULA ONE (09:45)
[2024-03-09] MEDS: EPINEPHrine (PF) 1 MG/ML AMP MISCELLANE ONE (09:46)
[2024-03-09] MEDS: MOXIFLOXACIN HCL 0.5% DROPS 3 ML BTL OP PRN (09:46)
[2024-03-09] MEDS: DUOVISC KIT (GREEN BOX) INTRAOCULA ONE (09:46)
[2024-03-09] MEDS: TIMOLOL 0.5% OPHTH DROPS 5 ML BTL OP PRN (09:46)
[2024-03-09] MEDS: LIDOCAINE 1% (PF) 10MG/ML VIAL MISCELLANE ONE (09:46)
[2024-03-09] MEDS: EPINEPHrine (PF) 0.3 ML in BALANCED SALT IRRIG SOLN COMB2 500 ML IRRIGATION ONE (09:47)
--- NOTE | 2024-03-09 10:00 | P.OP ---
Date of Procedure: 03/09/24 Preoperative Diagnosis: NS & CS Postoperative Diagnosis: same Procedure(s) Performed: PIOL< OS Implants: MX60E 23.00 Anesthesia: MAC Surgeon: Mario Munoz Pathology: none sent Condition: stable Disposition: same day Indications for Procedure: blurry vision Operative Findings: no complications
[2024-03-09 10:24] VITALS: BP 153/65; PULSE 78; RESP 18
--- NOTE | 2024-03-09 18:59 | OP ---
OPERATIVE REPORT DATE OF SERVICE : 03/09/2024 PREOPERATIVE DIAGNOSIS: Nuclear sclerosis and posterior subcapsular cataract. POSTOPERATIVE DIAGNOSIS: Nuclear sclerosis and posterior subcapsular cataract. OPERATION: Phacoemulsification of cataract and interocular lens implant, left eye. ESTIMATED BLOOD LOSS: Zero. SPECIMEN TAKEN: None. NARRATIVE: After obtaining the appropriate consent, the patient was brought to the operating room where the patient was placed under cardiac monitoring and prepped and draped in the usual sterile manner. At the 5 o'clock position, a 15-degree super sharp blade was used to create a paracentesis followed by instillation of 1% Xylocaine MPF with epinephrine 1:1000 MPF and balanced salt solution in a ratio of 1:2:1 into the anterior chamber. This was followed by Duovisc viscoelastic to stabilize the anterior chamber. At the 3 o'clock position a self-sealing corneal flap incision was created using 2.8 mm zakiya keratome. A cystotome was used to initiate a continuous tear capsulorrhexis which was completed with the Utrata forceps. A Binkhorst cannula was used to hydrodissect the lens nucleus followed by hydrodelineation. Phacoemulsification of the lens was performed utilizing phacochop in 22.35 seconds at 17.5% power. The remaining cortical material was removed using the irrigation aspiration mode followed by additional 1% Xylocaine MPF into the anterior chamber followed by viscoelastic to stabilize the capsular bag. A [employer] Lomb MX60E 23.0 posterior chamber lens was placed into the capsular bag without difficulty. The remaining viscoelastic material was removed from the anterior chamber with the irrigation/aspiration. Balanced salt solution was used to normalize the intraocular pressure. The incision was checked for watertight integrity. The patient then received 2 drops of 0.5% timolol followed by 2 drops Vigamox, was lightly patched and shielded in the usual manner. There were no complications from the procedure. The patient tolerated the procedure well and was returned to recovery in good condition. MMODL / IJN: [id number] /
== END 2024-03-09 10:48 | disposition home or self-care (01) ==
LOC: OR 08:17
PROVIDERS: ATTEND Ophthalmology